=== PATIENT | female | born 1940 | race Caucasian/White ===

== ENCOUNTER 2021-06-13 12:39 | Outpatient (CLI) | payer MEDICARE | END 2021-06-13 12:40 | disposition home or self-care (01) | LOC: CSHCT 12:39 | PROVIDERS: ATTEND Family Medicine | DX: S09.90XA Unspecified injury of head, initial encounter (principal); R42 Dizziness and giddiness; S00.83XA Contusion of other part of head, initial encounter; S50.10XA Contusion of unspecified forearm, initial encounter; W19.XXXA Unspecified fall, initial encounter; J34.9 Unspecified disorder of nose and nasal sinuses | CPT/HCPCS: 70150; 70450 ==

== ENCOUNTER 2022-03-08 14:22 | Outpatient (CLI) | payer MEDICARE | END 2022-03-08 14:23 | disposition home or self-care (01) | LOC: CSHMRI 14:22 | PROVIDERS: ATTEND Orthopaedic Surgery | DX: M54.16 Radiculopathy, lumbar region (principal); M47.816 Spondylosis without myelopathy or radiculopathy, lumbar region | CPT/HCPCS: 72148 ==